=== PATIENT | male | born 1950 | race Caucasian/White ===

== ENCOUNTER → 2018-12-28 | Outpatient (CLI) | payer MEDICARE ==
[~2018-12-28] MED LIST: CLIN300 PO; HYDMOR2 PO; OMEP20ER PO; SULTRIDS PO
== END | disposition home or self-care (01) ==
LOC: LAB SHORT 12:00 → LAB 12:00 → LAB FUT 12-23 15:45
DX: C00-D49 Neoplasms (principal); E78.5 Hyperlipidemia, unspecified; R04.0 Epistaxis; R79.89 Other specified abnormal findings of blood chemistry; E03.9 Hypothyroidism, unspecified; J30.9 Allergic rhinitis, unspecified; E55.9 Vitamin D deficiency, unspecified
CPT/HCPCS: 82043

== ENCOUNTER 2019-05-09 16:30 | Emergency (ER) | payer MEDICARE ==
[~2019-05-09] VITALS: Ht 190.5 cm; Wt 106.6 kg
[2019-05-09 17:07] LABS: BASOPHILS ABSOLUTE AUTO 0.04 K/mm3 (0.00-0.23); BASOPHILS PERCENT AUTO 1 % (0-2); EOSINOPHILS ABSOLUTE AUTO 0.12 K/mm3 (0.00-0.68); EOSINOPHILS PERCENT AUTO 2 % (0-6); Hematocrit 54.8 % (37.0-53.0); Hemoglobin 17.9 g/dL (13.5-17.5); IMMATURE GRAN ABSOLUTE AUTO 0.03 K/mm3 (0.00-0.10); IMMATURE GRAN PERCENT AUTO 0 % (0-1); LYMPHOCYTES ABSOLUTE AUTO 2.14 K/mm3 (0.84-5.20); LYMPHOCYTES PERCENT AUTO 31 % (21-46); MONOCYTES ABSOLUTE AUTO 0.58 K/mm3 (0.16-1.47); MONOCYTES PERCENT AUTO 9 % (4-13); Mean Corpuscular HGB 31.6 pg (26.0-34.0); Mean Corpuscular HGB Conc 32.7 g/dL (31.5-36.5); Mean Corpuscular Volume 97 fL (80-100); Mean Platelet Volume 10.1 fL (9.1-12.4); NEUTROPHILS ABSOLUTE AUTO 3.94 K/mm3 (1.96-9.15); NEUTROPHILS PERCENT AUTO 58 % (41-73); Platelet Count 208 K/mm3 (150-400); RDW Coefficient Variation 13.2 % (11.7-14.2); RDW Standard Deviation 47.4 fL (35.1-46.3); Red Blood Cell Count 5.66 M/mm3 (4.30-5.90); White Blood Cell Count 6.85 K/mm3 (4.00-11.30)
[2019-05-09 17:26] LABS: Source, Urine Clean Catch
[2019-05-09 17:31] LABS: Troponin I <0.015 ng/mL (0.000-0.040)
[2019-05-09 17:33] LABS: Alanine Aminotransfer (ALT/SGP 33 U/L (12-78); Albumin, Blood 3.9 g/dL (3.4-5.0); Albumin/Globulin Ratio 0.8 (0.8-1.8); Alk Phos 137 U/L (50-136); Anion Gap 4 mmol/L (6-16); Aspartate Aminotrans (AST/SGOT 17 U/L (12-37); Bilirubin, Total 0.7 mg/dL (0.1-1.0); Blood Urea Nitrogen 19 mg/dL (8-24); Bun/Creatinine Ratio 16.1 (12.0-20.0); CO2, Blood 29 mmol/L (21-32); Calcium, Blood 9.3 mg/dL (8.5-10.1); Chloride, Blood 102 mmol/L (98-108); Creatinine, Blood 1.18 mg/dL (0.60-1.20); Globulin, Blood 4.7 g/dL (2.2-4.0); Glomerular Filtration Rate >60 (60-); Glucose, Blood 124 mg/dL (70-99); Potassium, Blood 4.1 mmol/L (3.5-5.5); Sodium, Blood 135 mmol/L (136-145); Total Protein, Blood 8.6 g/dL (6.4-8.2)
[2019-05-09 17:33] LABS: Bilirubin, Urine Neg (Neg); Blood, Urine Neg (Neg); Glucose Qualitative, Urine Neg (Neg); Ketones, Urine Neg (Neg); Leukocyte Esterase, Urine Neg (Neg); Nitrite, Urine Neg (Neg); Protein, Urine Neg (Neg); Urobilinogen, Urine NORM (Normal)
[2019-05-09 17:36] LABS: Free Thyroxine 0.81 ng/dL (0.70-1.60)
[2019-05-09 17:38] LABS: Thyroid Stimulating Hormone 13.5 uIU/mL (0.360-4.800)
[2019-05-09 17:42] LABS: Appearance, Urine Clear (Clear); Color, Urine Yellow (P-Yellow)
== END 2019-05-09 18:28 | disposition home or self-care (01) ==
LOC: ER 16:30
PROVIDERS: Emergency Medicine; Physician Assistant
DX: R07.9 Chest pain, unspecified (principal); E03.9 Hypothyroidism, unspecified; Z88.5 Allergy status to narcotic agent; Z79.899 Other long term (current) drug therapy
CPT/HCPCS: 36415; 71046; 80053; 81003; 83690; 84439; 84443; 84484; 85025; 93005; 93010; 99285-25

== ENCOUNTER → 2019-12-08 | Outpatient (CLI) | payer MEDICARE | END | disposition home or self-care (01) | LOC: LAB SHORT 17:14 → LAB 17:14 | DX: J02.8 Acute pharyngitis due to other specified organisms (principal) | CPT/HCPCS: 87081 ==

== ENCOUNTER 2020-05-16 16:34 | Emergency (ER) | payer MEDICARE ==
[~2020-05-16] VITALS: Ht 190.5 cm; Wt 106.6 kg
[2020-05-16 17:23] LABS: BASOPHILS ABSOLUTE AUTO 0.05 K/mm3 (0.00-0.23); BASOPHILS PERCENT AUTO 1 % (0-2); EOSINOPHILS ABSOLUTE AUTO 0.28 K/mm3 (0.00-0.68); EOSINOPHILS PERCENT AUTO 5 % (0-6); Hematocrit 49.2 % (37.0-53.0); Hemoglobin 16.2 g/dL (13.5-17.5); IMMATURE GRAN ABSOLUTE AUTO 0.02 K/mm3 (0.00-0.10); IMMATURE GRAN PERCENT AUTO 0 % (0-1); LYMPHOCYTES ABSOLUTE AUTO 1.83 K/mm3 (0.84-5.20); LYMPHOCYTES PERCENT AUTO 30 % (21-46); MONOCYTES ABSOLUTE AUTO 0.48 K/mm3 (0.16-1.47); MONOCYTES PERCENT AUTO 8 % (4-13); Mean Corpuscular HGB 31.2 pg (26.0-34.0); Mean Corpuscular HGB Conc 32.9 g/dL (31.5-36.5); Mean Corpuscular Volume 95 fL (80-100); Mean Platelet Volume 9.7 fL (9.1-12.4); NEUTROPHILS ABSOLUTE AUTO 3.48 K/mm3 (1.96-9.15); NEUTROPHILS PERCENT AUTO 57 % (41-73); Platelet Count 208 K/mm3 (150-400); RDW Coefficient Variation 13.2 % (11.7-14.2); RDW Standard Deviation 46.6 fL (35.1-46.3); Red Blood Cell Count 5.19 M/mm3 (4.30-5.90); White Blood Cell Count 6.14 K/mm3 (4.00-11.30)
[2020-05-16 17:43] LABS: Alanine Aminotransfer (ALT/SGP 36 U/L (12-78); Albumin, Blood 3.4 g/dL (3.4-5.0); Albumin/Globulin Ratio 0.8 (0.8-1.8); Alk Phos 125 U/L (50-136); Anion Gap 4 mmol/L (6-16); Aspartate Aminotrans (AST/SGOT 17 U/L (12-37); Bilirubin, Total 0.5 mg/dL (0.1-1.0); Blood Urea Nitrogen 22 mg/dL (8-24); CO2, Blood 27 mmol/L (21-32); Calcium, Blood 9.1 mg/dL (8.5-10.1); Chloride, Blood 106 mmol/L (98-108); Creatinine, Blood 1.22 mg/dL (0.60-1.20); Globulin, Blood 4.2 g/dL (2.2-4.0); Glomerular Filtration Rate >60 (60-); Glucose, Blood 137 mg/dL (70-99); Potassium, Blood 4.1 mmol/L (3.5-5.5); Sodium, Blood 137 mmol/L (136-145); Total Protein, Blood 7.6 g/dL (6.4-8.2)
[2020-05-16] MEDS ORDERED: EUTHYROX50 MCG PO (19:00)
[2020-05-16] MEDS ORDERED: DOXY100 PO (19:01)
== END 2020-05-16 19:43 | disposition home or self-care (01) ==
LOC: ER 16:34
PROVIDERS: Physician Assistant
DX: K92.1 Melena (principal); Z88.5 Allergy status to narcotic agent; Z79.899 Other long term (current) drug therapy; E03.9 Hypothyroidism, unspecified
CPT/HCPCS: 36415; 80053; 85025; 86850; 86900; 86901; 93005; 93010; 99284-25

== ENCOUNTER 2020-05-29 08:26 | Emergency (ER) | payer MEDICARE ==
[~2020-05-29] VITALS: Ht 190.5 cm; Wt 106.6 kg
[~2020-05-29 08:26] MED LIST changes: +DOXY100 PO; +EUTHYROX50 MCG PO
[2020-05-29 10:02] LABS: BASOPHILS ABSOLUTE AUTO 0.04 K/mm3 (0.00-0.23); BASOPHILS PERCENT AUTO 1 % (0-2); EOSINOPHILS ABSOLUTE AUTO 0.27 K/mm3 (0.00-0.68); EOSINOPHILS PERCENT AUTO 4 % (0-6); Hematocrit 46.5 % (37.0-53.0); Hemoglobin 15.1 g/dL (13.5-17.5); IMMATURE GRAN ABSOLUTE AUTO 0.02 K/mm3 (0.00-0.10); IMMATURE GRAN PERCENT AUTO 0 % (0-1); LYMPHOCYTES ABSOLUTE AUTO 1.46 K/mm3 (0.84-5.20); LYMPHOCYTES PERCENT AUTO 19 % (21-46); MONOCYTES ABSOLUTE AUTO 0.57 K/mm3 (0.16-1.47); MONOCYTES PERCENT AUTO 7 % (4-13); Mean Corpuscular HGB 31.1 pg (26.0-34.0); Mean Corpuscular HGB Conc 32.5 g/dL (31.5-36.5); Mean Corpuscular Volume 96 fL (80-100); Mean Platelet Volume 9.6 fL (9.1-12.4); NEUTROPHILS ABSOLUTE AUTO 5.39 K/mm3 (1.96-9.15); NEUTROPHILS PERCENT AUTO 70 % (41-73); Platelet Count 183 K/mm3 (150-400); RDW Coefficient Variation 13.2 % (11.7-14.2); Red Blood Cell Count 4.85 M/mm3 (4.30-5.90); White Blood Cell Count 7.75 K/mm3 (4.00-11.30)
[2020-05-29 10:20] LABS: Alanine Aminotransfer (ALT/SGP 32 U/L (12-78); Albumin, Blood 3.2 g/dL (3.4-5.0); Albumin/Globulin Ratio 0.8 (0.8-1.8); Alk Phos 134 U/L (50-136); Anion Gap 5 mmol/L (6-16); Aspartate Aminotrans (AST/SGOT 18 U/L (12-37); Bilirubin, Total 0.4 mg/dL (0.1-1.0); Blood Urea Nitrogen 20 mg/dL (8-24); Bun/Creatinine Ratio 16.9 (12.0-20.0); CO2, Blood 26 mmol/L (21-32); Calcium, Blood 8.6 mg/dL (8.5-10.1); Chloride, Blood 106 mmol/L (98-108); Creatinine, Blood 1.18 mg/dL (0.60-1.20); Globulin, Blood 3.8 g/dL (2.2-4.0); Glomerular Filtration Rate >60 (60-); Glucose, Blood 134 mg/dL (70-99); Potassium, Blood 4.4 mmol/L (3.5-5.5); Sodium, Blood 137 mmol/L (136-145)
[2020-05-29] MEDS ORDERED: AMOCLA875 PO (10:38)
== END 2020-05-29 10:45 | disposition home or self-care (01) ==
LOC: ER 08:26
PROVIDERS: Emergency Medicine
DX: L03.213 Periorbital cellulitis (principal); E03.9 Hypothyroidism, unspecified; Z88.5 Allergy status to narcotic agent; Z79.899 Other long term (current) drug therapy; Z79.2 Long term (current) use of antibiotics
CPT/HCPCS: 36415; 70487; 80053; 85025; 87070; 87075; 87077; 87147; 87186; 87205; 96365; 99283-25; J0690; Q9967

== ENCOUNTER 2020-07-27 19:03 | Emergency (ER) | payer MEDICARE ==
[~2020-07-27] VITALS: Ht 190.5 cm; Wt 108.9 kg
[~2020-07-27 19:03] MED LIST changes: +AMOCLA875 PO
[2020-07-27 19:51] LABS: BASOPHILS ABSOLUTE AUTO 0.06 K/mm3 (0.00-0.23); BASOPHILS PERCENT AUTO 1 % (0-2); EOSINOPHILS ABSOLUTE AUTO 0.19 K/mm3 (0.00-0.68); EOSINOPHILS PERCENT AUTO 3 % (0-6); Hematocrit 45.5 % (37.0-53.0); Hemoglobin 14.8 g/dL (13.5-17.5); IMMATURE GRAN ABSOLUTE AUTO 0.03 K/mm3 (0.00-0.10); IMMATURE GRAN PERCENT AUTO 0 % (0-1); LYMPHOCYTES ABSOLUTE AUTO 2.41 K/mm3 (0.84-5.20); LYMPHOCYTES PERCENT AUTO 34 % (21-46); MONOCYTES ABSOLUTE AUTO 0.58 K/mm3 (0.16-1.47); MONOCYTES PERCENT AUTO 8 % (4-13); Mean Corpuscular HGB 32.3 pg (26.0-34.0); Mean Corpuscular HGB Conc 32.5 g/dL (31.5-36.5); Mean Corpuscular Volume 99 fL (80-100); Mean Platelet Volume 9.7 fL (9.1-12.4); NEUTROPHILS ABSOLUTE AUTO 3.87 K/mm3 (1.96-9.15); NEUTROPHILS PERCENT AUTO 54 % (41-73); Platelet Count 160 K/mm3 (150-400); RDW Coefficient Variation 14.5 % (11.7-14.2); Red Blood Cell Count 4.58 M/mm3 (4.30-5.90); White Blood Cell Count 7.14 K/mm3 (4.00-11.30)
[2020-07-27 20:11] LABS: Alanine Aminotransfer (ALT/SGP 54 U/L (12-78); Albumin, Blood 3.6 g/dL (3.4-5.0); Albumin/Globulin Ratio 0.9 (0.8-1.8); Alk Phos 107 U/L (50-136); Anion Gap 5 mmol/L (6-16); Aspartate Aminotrans (AST/SGOT 27 U/L (12-37); Bilirubin, Total 0.5 mg/dL (0.1-1.0); Blood Urea Nitrogen 18 mg/dL (8-24); Bun/Creatinine Ratio 15.1 (12.0-20.0); CO2, Blood 30 mmol/L (21-32); Calcium, Blood 8.9 mg/dL (8.5-10.1); Chloride, Blood 107 mmol/L (98-108); Creatinine, Blood 1.19 mg/dL (0.60-1.20); Globulin, Blood 4.1 g/dL (2.2-4.0); Glomerular Filtration Rate >60 (60-); Glucose, Blood 103 mg/dL (70-99); Potassium, Blood 4.7 mmol/L (3.5-5.5); Sodium, Blood 142 mmol/L (136-145); Total Protein, Blood 7.7 g/dL (6.4-8.2)
[2020-07-27] MEDS ORDERED: Cipro500 MG PO (20:57)
== END 2020-07-27 21:07 | disposition home or self-care (01) ==
LOC: ER 19:03
PROVIDERS: Physician Assistant
DX: T81.40XA Infection following a procedure, unspecified, initial encounter (principal); L03.211 Cellulitis of face; E03.9 Hypothyroidism, unspecified; Z88.5 Allergy status to narcotic agent; Z79.899 Other long term (current) drug therapy
CPT/HCPCS: 36415; 80053; 85025; 99283

== ENCOUNTER 2021-05-27 17:53 | Emergency (ER) | payer MEDICARE ==
[~2021-05-27] VITALS: Ht 190.5 cm; Wt 108.9 kg
[~2021-05-27 17:53] MED LIST changes: +Cipro500 MG PO
[2021-05-27 18:55] LABS: BASOPHILS ABSOLUTE AUTO 0.07 K/mm3 (0.00-0.23); BASOPHILS PERCENT AUTO 1 % (0-2); EOSINOPHILS ABSOLUTE AUTO 0.31 K/mm3 (0.00-0.68); EOSINOPHILS PERCENT AUTO 4 % (0-6); Hematocrit 49.6 % (37.0-53.0); Hemoglobin 16.3 g/dL (13.5-17.5); IMMATURE GRAN ABSOLUTE AUTO 0.02 K/mm3 (0.00-0.10); IMMATURE GRAN PERCENT AUTO 0 % (0-1); LYMPHOCYTES ABSOLUTE AUTO 2.21 K/mm3 (0.84-5.20); LYMPHOCYTES PERCENT AUTO 31 % (21-46); MONOCYTES ABSOLUTE AUTO 0.52 K/mm3 (0.16-1.47); MONOCYTES PERCENT AUTO 7 % (4-13); Mean Corpuscular HGB 30.6 pg (26.0-34.0); Mean Corpuscular HGB Conc 32.9 g/dL (31.5-36.5); Mean Corpuscular Volume 93 fL (80-100); Mean Platelet Volume 10.3 fL (9.1-12.4); NEUTROPHILS ABSOLUTE AUTO 3.98 K/mm3 (1.96-9.15); NEUTROPHILS PERCENT AUTO 56 % (41-73); Platelet Count 196 K/mm3 (150-400); RDW Standard Deviation 48.9 fL (35.1-46.3); Red Blood Cell Count 5.32 M/mm3 (4.30-5.90); White Blood Cell Count 7.11 K/mm3 (4.00-11.30)
[2021-05-27 19:37] LABS: Troponin I <0.015 ng/mL (0.000-0.040)
[2021-05-27 19:51] LABS: Alanine Aminotransfer (ALT/SGP 36 U/L (12-78); Albumin, Blood 3.7 g/dL (3.4-5.0); Albumin/Globulin Ratio 0.9 (0.8-1.8); Alk Phos 107 U/L (50-136); Anion Gap 4 mmol/L (6-16); Aspartate Aminotrans (AST/SGOT 31 U/L (12-37); Bilirubin, Total 0.7 mg/dL (0.1-1.0); Blood Urea Nitrogen 22 mg/dL (8-24); Bun/Creatinine Ratio 17.2 (12.0-20.0); CO2, Blood 27 mmol/L (21-32); Chloride, Blood 106 mmol/L (98-108); Creatinine, Blood 1.28 mg/dL (0.60-1.20); Glomerular Filtration Rate 56 (60-); Glucose, Blood 133 mg/dL (70-99); Potassium, Blood 4.4 mmol/L (3.5-5.5); Sodium, Blood 137 mmol/L (136-145); Total Protein, Blood 7.7 g/dL (6.4-8.2)
== END 2021-05-27 22:45 | disposition home or self-care (01) ==
LOC: ER 17:53
PROVIDERS: Emergency Medicine
DX: R42 Dizziness and giddiness (principal); E03.9 Hypothyroidism, unspecified; I10 Essential (primary) hypertension; Z88.5 Allergy status to narcotic agent; Z79.899 Other long term (current) drug therapy; Z79.890 Hormone replacement therapy; Z85.819 Personal history of malignant neoplasm of unspecified site of lip, oral cavity, and pharynx
CPT/HCPCS: 36415; 71046; 80053; 82947; 83690; 83880; 84484; 85025; 93005; 93010; 99284-25

== ENCOUNTER 2021-06-05 15:11 | Inpatient (IN) | payer MEDICARE ==
[~2021-06-05] VITALS: Ht 190.5 cm; Wt 97.5 kg
[2021-06-05 16:08] LABS: BASOPHILS ABSOLUTE AUTO 0.06 K/mm3 (0.00-0.23); BASOPHILS PERCENT AUTO 1 % (0-2); EOSINOPHILS ABSOLUTE AUTO 0.11 K/mm3 (0.00-0.68); EOSINOPHILS PERCENT AUTO 1 % (0-6); Hematocrit 54.2 % (37.0-53.0); Hemoglobin 17.7 g/dL (13.5-17.5); IMMATURE GRAN ABSOLUTE AUTO 0.04 K/mm3 (0.00-0.10); IMMATURE GRAN PERCENT AUTO 1 % (0-1); LYMPHOCYTES ABSOLUTE AUTO 2.05 K/mm3 (0.84-5.20); LYMPHOCYTES PERCENT AUTO 23 % (21-46); MONOCYTES ABSOLUTE AUTO 0.55 K/mm3 (0.16-1.47); MONOCYTES PERCENT AUTO 6 % (4-13); Mean Corpuscular HGB 30.4 pg (26.0-34.0); Mean Corpuscular HGB Conc 32.7 g/dL (31.5-36.5); Mean Corpuscular Volume 93 fL (80-100); NEUTROPHILS ABSOLUTE AUTO 5.96 K/mm3 (1.96-9.15); NEUTROPHILS PERCENT AUTO 68 % (41-73); Platelet Count 202 K/mm3 (150-400); RDW Coefficient Variation 13.9 % (11.7-14.2); RDW Standard Deviation 47.9 fL (35.1-46.3); Red Blood Cell Count 5.82 M/mm3 (4.30-5.90); White Blood Cell Count 8.77 K/mm3 (4.00-11.30)
[2021-06-05 16:35] LABS: Alanine Aminotransfer (ALT/SGP 44 U/L (12-78); Albumin/Globulin Ratio 0.9 (0.8-1.8); Alk Phos 117 U/L (50-136); Anion Gap 5 mmol/L (6-16); Aspartate Aminotrans (AST/SGOT 21 U/L (12-37); Bilirubin, Total 1.3 mg/dL (0.1-1.0); Blood Urea Nitrogen 25 mg/dL (8-24); Bun/Creatinine Ratio 14.5 (12.0-20.0); CO2, Blood 29 mmol/L (21-32); Calcium, Blood 9.7 mg/dL (8.5-10.1); Chloride, Blood 103 mmol/L (98-108); Creatinine, Blood 1.72 mg/dL (0.60-1.20); Globulin, Blood 4.4 g/dL (2.2-4.0); Glomerular Filtration Rate 40 (60-); Glucose, Blood 127 mg/dL (70-99); Potassium, Blood 4.5 mmol/L (3.5-5.5); Sodium, Blood 137 mmol/L (136-145); Total Protein, Blood 8.4 g/dL (6.4-8.2); Troponin I <0.015 ng/mL (0.000-0.040)
[2021-06-05 19:13] LABS: SARS-Cov-2 (COVID-19) PCR, MMC NEGATIVE (NEGATIVE)
[2021-06-05 20:47] LABS: Magnesium, Blood 2.5 mg/dL (1.6-2.4)
[2021-06-05 20:50] LABS: International Normalized Ratio 1.06; Prothrombin Time Results 11.4 Sec (9.7-11.5)
[2021-06-05 21:39] LABS: Cholesterol 174 mg/dL (50-200); HDL Cholesterol 58 mg/dL (>39); LDL/HDL RATIO 1.6; Low Density Lipoprotein Chol 94 mg/dL (0-110); Triglycerides 109 mg/dL (30-160); Very Low Density Lipoprot Chol 21 mg/dL (6-32)
[2021-06-06 02:18] LABS: Source, Urine Clean Catch
[2021-06-06 02:21] LABS: Bilirubin, Urine Neg (Neg); Blood, Urine Neg (Neg); Glucose Qualitative, Urine Neg (Neg); Ketones, Urine Neg (Neg); Leukocyte Esterase, Urine Neg (Neg); Nitrite, Urine Neg (Neg); Protein, Urine 2+ (Neg); Urobilinogen, Urine NORM (Normal)
[2021-06-06 02:27] LABS: Appearance, Urine Clear (Clear); Color, Urine Yellow (P-Yellow)
[2021-06-06 02:28] LABS: Bacteria Rare /hpf; Hyaline Casts 50-100 /lpf (0-2); Mucus Light (0-Heavy); Red Blood Cells, Urine Not Seen /hpf (0-2); Squamous Epithelial Cells Rare /hpf (Few); White Blood Cells, Urine 0-2 /hpf (0-5)
[2021-06-06 02:31] LABS: U Amphetamine Screen DETECTED; U Barbituate Screen Not Detected; U Benzodiazapine Screen Not Detected; U Buprenorphine Screen Not Detected; U Cannabinoids Screen DETECTED; U Cocaine Screen Not Detected; U Methadone Screen Not Detected; U Methamphetamine Screen DETECTED; U Opiates Screen Not Detected; U Oxycodone Screen Not Detected; U Phencyclidine Screen Not Detected; U Propoxyphene Screen Not Detected
--- NOTE | 2021-06-06 03:48 | NUR ---
SHIFT SUMMARY NEW ER ADMIT ([id number]), NO ACUTE CHANGES SINCE ASSUMING CARE, NO C/O ANY KIND, A&O, ABLE TO MAKE NEEDS KNOWN, SLEEPING, NS INFUSING, CALL LIGHT IN REACH, BED ALARM ACTIVE, WILL CONT TO MONITOR UNTIL REPORT GIVEN TO DAY RN.
[2021-06-06 05:38] LABS: BASOPHILS ABSOLUTE AUTO 0.04 K/mm3 (0.00-0.23); BASOPHILS PERCENT AUTO 1 % (0-2); EOSINOPHILS ABSOLUTE AUTO 0.17 K/mm3 (0.00-0.68); EOSINOPHILS PERCENT AUTO 3 % (0-6); Hemoglobin 15.3 g/dL (13.5-17.5); IMMATURE GRAN ABSOLUTE AUTO 0.01 K/mm3 (0.00-0.10); IMMATURE GRAN PERCENT AUTO 0 % (0-1); LYMPHOCYTES ABSOLUTE AUTO 2.23 K/mm3 (0.84-5.20); LYMPHOCYTES PERCENT AUTO 36 % (21-46); MONOCYTES ABSOLUTE AUTO 0.41 K/mm3 (0.16-1.47); MONOCYTES PERCENT AUTO 7 % (4-13); Mean Corpuscular HGB 30.7 pg (26.0-34.0); Mean Corpuscular HGB Conc 32.6 g/dL (31.5-36.5); Mean Corpuscular Volume 94 fL (80-100); NEUTROPHILS ABSOLUTE AUTO 3.42 K/mm3 (1.96-9.15); NEUTROPHILS PERCENT AUTO 55 % (41-73); Platelet Count 166 K/mm3 (150-400); RDW Coefficient Variation 13.9 % (11.7-14.2); RDW Standard Deviation 48.3 fL (35.1-46.3); Red Blood Cell Count 4.98 M/mm3 (4.30-5.90); White Blood Cell Count 6.28 K/mm3 (4.00-11.30)
[2021-06-06 06:37] LABS: Bun/Creatinine Ratio 21.1 (12.0-20.0); Creatinine, Blood 1.47 mg/dL (0.60-1.20)
[2021-06-06] MEDS ORDERED: LOSA25 PO (10:55)
[2021-06-06] MEDS ORDERED: METF500 PO (10:56)
[2021-06-06] MEDS ORDERED: ATOR20 PO (11:00)
[2021-06-06] MEDS ORDERED: TRIDERM28.4 GM TOP (11:02)
[2021-06-06] MEDS ORDERED: EUTHYROX50 MCG PO (11:03)
--- NOTE | 2021-06-06 16:37 | NUR ---
PATIENT HAVING INCREASED DIFFICULTY WITH WORD FINDING AND FORMING SENTENCES. MORE CONFUSED THROUGHOUT THE DAY. DR. MCKEE NOTIFIED AND PLANS TO DO A CTA ONCE KIDNEY FUNCTION HAS IMPROVED. HEAD CHAR FILTER TANK TENDER EQUAL AND STRONG, STRONG PLANTAR/DORSAL FLEXION. UNSTEADY ON HIS FEET. NO NEW ORDERS RECEIVED.
--- NOTE | 2021-06-07 04:40 | NUR ---
SHIFT SUMMARY PATIENT ALERT AND ORIENTED X2-3. NO ACUTE ISSUES NOTED. IV PATENT AND FLUSHED. BED IN LOWEST POSITION WITH WHEELS LOCKED AND ALARM ON. CALL LIGHT WITHIN REACH. REPORT GIVEN TO ONCOMING RN.
[2021-06-07 05:05] LABS: Hematocrit 46.5 % (37.0-53.0); Hemoglobin 15.7 g/dL (13.5-17.5); Mean Corpuscular HGB Conc 33.8 g/dL (31.5-36.5); Mean Corpuscular Volume 92 fL (80-100); Mean Platelet Volume 10.2 fL (9.1-12.4); Platelet Count 153 K/mm3 (150-400); RDW Coefficient Variation 13.7 % (11.7-14.2); RDW Standard Deviation 46.4 fL (35.1-46.3); Red Blood Cell Count 5.06 M/mm3 (4.30-5.90); White Blood Cell Count 6.09 K/mm3 (4.00-11.30)
[2021-06-07 05:58] LABS: Alanine Aminotransfer (ALT/SGP 31 U/L (12-78); Albumin, Blood 3.3 g/dL (3.4-5.0); Albumin/Globulin Ratio 0.8 (0.8-1.8); Alk Phos 96 U/L (50-136); Anion Gap 8 mmol/L (6-16); Aspartate Aminotrans (AST/SGOT 17 U/L (12-37); Blood Urea Nitrogen 25 mg/dL (8-24); Bun/Creatinine Ratio 23.4 (12.0-20.0); CHOL/HDL RATIO 2.9; CO2, Blood 25 mmol/L (21-32); Calcium, Blood 8.6 mg/dL (8.5-10.1); Chloride, Blood 103 mmol/L (98-108); Cholesterol 147 mg/dL (50-200); Creatinine, Blood 1.07 mg/dL (0.60-1.20); Free Thyroxine 1.03 ng/dL (0.70-1.60); Globulin, Blood 3.9 g/dL (2.2-4.0); Glomerular Filtration Rate >60 (60-); Glucose, Blood 104 mg/dL (70-99); HDL Cholesterol 50 mg/dL (>39); LDL/HDL RATIO 1.5; Low Density Lipoprotein Chol 76 mg/dL (0-110); Potassium, Blood 3.8 mmol/L (3.5-5.5); Sodium, Blood 136 mmol/L (136-145); Total Protein, Blood 7.2 g/dL (6.4-8.2); Triglycerides 106 mg/dL (30-160); Very Low Density Lipoprot Chol 21 mg/dL (6-32)
--- NOTE | 2021-06-07 12:34 | NUR ---
RECEIVED PHONE CALL FROM TELE STATING THAT PT HAD EXPERIENCED PROLONGED QT'S LAST NIGHT AND THIS SHIFT AT .51 AND .49. THIS IT INFRASTRUCTURE PROJECT MANAGER INFORMED MD. MEDS WILL BE LOOKED AT FOR PORTENTIAL ADJUSTMENTS.
--- NOTE | 2021-06-07 18:08 | NUR ---
PT IS RESTING IN BED, EATING DINNER, AND PM MED PASS. PT IS NOT ABLE TO COMMUNICATE PAST YES AND NO QUESTIONS. NOT ABLE TO STRING A SENTENCE TOGETHER. PT UNERSTAND AND CAN CONFIRM WITH YES, NO, OK, I THINK, COMMENTS. GETS FRUSTRATED WHEN HE IS NOT ABLE TO SAY WHAT HE WANTS. SISTER AND ROOMATES SAY THIS IS NOT HIS BASELINE. NO OTHER CHANGES TO REPORT. WILL CONTINUE TO MONITOR.
--- NOTE | 2021-06-08 05:42 | NUR ---
SHIFT SUMMARY PATIENT ALERT AND OREINTED X3. EXPERIENCING EXPRESSIVE APHASIA. NO COMPLAINTS OF PAIN OR SHORTNESS OF BREATH. SLEPT WELL OVERNIGHT. NO ACUTE ISSUES NOTED. IV PATENT AND FLUSHED. BED IN LOWEST POSITION WITH WHEELS LOCKED AND ALARM ON. CALL LIGHT WITHIN REACH. REPORT GIVEN TO ONCOMING RN.
[2021-06-08 05:47] LABS: Triiodothyronine, Free 1.72 pg/mL (2.18-3.98)
[2021-06-08 05:48] LABS: Anion Gap 10 mmol/L (6-16); Blood Urea Nitrogen 22 mg/dL (8-24); Bun/Creatinine Ratio 21.4 (12.0-20.0); CO2, Blood 26 mmol/L (21-32); Calcium, Blood 8.8 mg/dL (8.5-10.1); Chloride, Blood 102 mmol/L (98-108); Creatinine, Blood 1.03 mg/dL (0.60-1.20); Glomerular Filtration Rate >60 (60-); Glucose, Blood 74 mg/dL (70-99); Potassium, Blood 4.1 mmol/L (3.5-5.5); Sodium, Blood 138 mmol/L (136-145)
--- NOTE | 2021-06-08 18:24 | NUR ---
PT IS DOING BETTER TODAY HE IS ABLE TO COMMUNICATE IN SMALL SENTEMCES. PT HAD FAMILY AT BEDSIDE THIS SHIFT. NO COMPLAINTS OF PAIN/SOB/SYNCOPE. BED ALARM ON. WILL CONT. TO MONITOR.
--- NOTE | 2021-06-09 04:53 | NUR ---
SHIFT SUMMARY A/O, ABLE TO MAKE NEEDS KNOWN. COOPERATIVE WITH CARE. CALLS AND ANSWERS QUESTIONS APPROPRIATELY. NO C/O PAIN/DISCOMFORT. 1P /c FWW TO BATHROOM. APPEARED TO REST MUCH OF THE NIGHT. NPO /p MIDNIGHT FOR PROCEDURE. BED IN LOWEST POSITION; ALARM ON. CALL LIGHT AND BELONGINGS WITHIN REACH. CONTINUE WITH CURRENT PLAN OF CARE. REPORT TO ONCOMING RN.
[2021-06-09 05:21] LABS: Hemoglobin 18.2 g/dL (13.5-17.5); Mean Corpuscular HGB 31.1 pg (26.0-34.0); Mean Corpuscular HGB Conc 33.7 g/dL (31.5-36.5); Mean Corpuscular Volume 92 fL (80-100); RDW Coefficient Variation 13.4 % (11.7-14.2); RDW Standard Deviation 45.7 fL (35.1-46.3); Red Blood Cell Count 5.86 M/mm3 (4.30-5.90)
[2021-06-09 05:28] LABS: Platelet Count 109 K/mm3 (150-400)
[2021-06-09 08:45] LABS: Alanine Aminotransfer (ALT/SGP 35 U/L (12-78); Albumin, Blood 3.6 g/dL (3.4-5.0); Albumin/Globulin Ratio 0.9 (0.8-1.8); Alk Phos 99 U/L (50-136); Anion Gap 6 mmol/L (6-16); Aspartate Aminotrans (AST/SGOT 21 U/L (12-37); Bilirubin, Total 1.5 mg/dL (0.1-1.0); Blood Urea Nitrogen 20 mg/dL (8-24); Bun/Creatinine Ratio 17.9 (12.0-20.0); CO2, Blood 27 mmol/L (21-32); Calcium, Blood 9.1 mg/dL (8.5-10.1); Chloride, Blood 104 mmol/L (98-108); Creatinine, Blood 1.12 mg/dL (0.60-1.20); Globulin, Blood 4.1 g/dL (2.2-4.0); Glomerular Filtration Rate >60 (60-); Glucose, Blood 80 mg/dL (70-99); Potassium, Blood 3.9 mmol/L (3.5-5.5); Sodium, Blood 137 mmol/L (136-145); Total Protein, Blood 7.7 g/dL (6.4-8.2)
--- NOTE | 2021-06-09 13:27 | NUR ---
PT BROUGHT FROM DIRECTOR OF SAFETY AND SECURITY TO [facility] POST PCI. RIGHT FEMORAL ACCESS USED DURING PROCEDURE. AT THIS TIME RIGHT GROIN APPEARS TO BE SOFT NON TENDER WITH NO ACTIVE BLEEDING, OOZING, OR PAIN NOTED. PT DENIES CP OR SOB. WEAVING INSTRUCTOR SINUS WITH LBBB. VSS. PT OFFERED ORAL FLUIDS, DENIES AT THIS TIME. PROVIDED HEAD PHONES TO WATCH TV AND POSITIONED FOR COMFORT. NS INFUSING AT 75 CC/HR ORDERED BY DR. CEDILLO POST PROCEDURE. RLE PULSES +1 TO DP/PT SITES, PERCLOSE CLOSURE DEVICE USED FOR HEMOSTASIS AT END OF CASE. CALL LIGHT IN REACH.
--- NOTE | 2021-06-09 16:07 | NUR ---
[place]YSON PAD CHANGED DUE TO OOZING WHILE SITTING AT 90 DEGREES. RIGHT GROIN SITE SOFT, NON TENDER. PT DENIES PAIN. NO ACTIVE BLEEDING NOTED. VSS.
--- NOTE | 2021-06-09 17:11 | NUR ---
PATIENT ARRIVAL/CARE ASSUMPTION PATIENT ARRIVED TO PCU UNIT ON GURNEY FROM [facility]. PATIENT TRANSFERED BY SLIDE SHEET. PATIENT IS ALERT AND ORIENTATED X 4. VSS. SPO2 >90% ON RA. TELE SR 70S. RIGHT GROIN ACCESS SITE HAS NO HEMATOMA, TENDER, PAIN, REDNESS. SITE HAS ABOUT 3CM AMOUNT OF BLOOD. PATIENT VITAL SIGNS BEING DONE Q 15 FOR THE FIRST HOUR AND Q 15 FOR ASSESSMENT OF ACCESS SITE. PATIENT IS RELAXING IN BED. PATIENT REPORTS NO PAIN. CALL LIGHT WITHIN REACH. WILL CONTINUE TO MONITOR AND PROVIDE CARE.
--- NOTE | 2021-06-09 18:08 | NUR ---
SHIFT SUMMARY PATIENT A/O X4. VSS. TELE SR 60-70S. SPO2 >90% ON RA. PATIENT DENIES CHEST PAIN, SHORTNESS OF BREATH, AND PAIN AT ACCESS SITE. RIGHT FEMORAL ACCESS SITE NUPTUNE CHANGED DUE TO OOZING OF BLOOD TO THE EDGES. THIS RN PUT PRESSURE ON FOR 10 MINS, AFTER 10 MINS A SMALL AMOUNT OF OOZING BLOOD. THIS RN THEN APPLIED SAND BAG TO SITE FOR PRESSURE. THERE IS NO REDNESS, HEMATOMA, OR PAIN AT THE ACCESS SITE. CALL LIGHT WITHIN REACH. WILL CONTINUE TO MONITOR AND PROVIDE CARE UNTIL HAND OFF WITH NEXT SHIFT.
--- NOTE | 2021-06-09 18:52 | NUR ---
CALL TO THIS RN NOTIFED MD CEDILLO OF PATIENT CONTINUING SMALL OZZING BLOOD AT RIGHT FEMORAL ACCESS SITE. THIS RN NOTIFED OF PUTTING PRESSURE ON SITE FOR 10MINS AND THEN ADDING THE 2LB SAND BAG. PER MD CEDILLO ORDER THIS RN POSITIONED THE PATIENT TO LAYING FLAT WITH THE SAND BAG IN PLACE. THIS RN CHANGED THE DRESSING DUE TO BLOOD OZZING OVER THE DRESSING EDGES. DRESSING IN PLACE IS TWO BY TWOS WITH A CLEAR DRESSING ON TOP. PER ORDER PATIENT TO REMAIN FLAT WITH SAND BAG IN PLACE FOR FOUR HOURS STARTED AT 1830, AND NOTIFY MD AFTER 4 HOURS OF ANY CHANGES. CALL LIGHT WITHIN REACH. WILL CONTINUE TO MONITOR AND PROVIDE CARE UNTIL HAND OFF WITH NEXT SHIFT/
[2021-06-10 04:28] LABS: Hematocrit 44.7 % (37.0-53.0); Hemoglobin 15.2 g/dL (13.5-17.5); Mean Corpuscular HGB 30.9 pg (26.0-34.0); Mean Corpuscular Volume 91 fL (80-100); Mean Platelet Volume 10.6 fL (9.1-12.4); Platelet Count 165 K/mm3 (150-400); RDW Coefficient Variation 13.5 % (11.7-14.2); RDW Standard Deviation 45.3 fL (35.1-46.3); Red Blood Cell Count 4.92 M/mm3 (4.30-5.90); White Blood Cell Count 6.31 K/mm3 (4.00-11.30)
[2021-06-10 04:56] LABS: Alanine Aminotransfer (ALT/SGP 36 U/L (12-78); Albumin, Blood 3.1 g/dL (3.4-5.0); Albumin/Globulin Ratio 0.8 (0.8-1.8); Alk Phos 85 U/L (50-136); Anion Gap 6 mmol/L (6-16); Aspartate Aminotrans (AST/SGOT 19 U/L (12-37); Bilirubin, Total 1.1 mg/dL (0.1-1.0); Blood Urea Nitrogen 19 mg/dL (8-24); Bun/Creatinine Ratio 17.9 (12.0-20.0); CO2, Blood 24 mmol/L (21-32); Calcium, Blood 8.4 mg/dL (8.5-10.1); Chloride, Blood 108 mmol/L (98-108); Creatinine, Blood 1.06 mg/dL (0.60-1.20); Globulin, Blood 3.7 g/dL (2.2-4.0); Glomerular Filtration Rate >60 (60-); Glucose, Blood 89 mg/dL (70-99); Potassium, Blood 3.8 mmol/L (3.5-5.5); Sodium, Blood 138 mmol/L (136-145); Total Protein, Blood 6.8 g/dL (6.4-8.2)
--- NOTE | 2021-06-10 06:48 | NUR ---
SHIFT SUMMARY ASSUMED CARE OF PT AT 1900. PT IS A/OX4. HEART SOUNDS REGULAR, LUNG SOUNDS ARE DIMINISHED. PT LAYED FLAT FOR THE FIRST 4 HRS OFTHE SHIFT DUE TO BLEEDING AT SITE. WEIGHTS WERE REMOVED AT 2230. PT DENIES PAIN, AND SITE IS FREE OF SWELLING AND BLEEDING. PT SAT AT 30 DEGREES UNTIL ABOUT 0200 WHEN HE WALKED TO THE BATHROOM. PT USED URINAL THE REST OF THE NIGHT. CALL LIGHT IN REACH, BED IN LOWEST POSITION, BED AALRM ON.
--- NOTE | 2021-06-10 09:30 | NUR ---
UPDATE PT ALERT AND ORIENTED. VS STABLE. BP STABLE. HR NSR. PT DENIES ANY PAIN. RIGHT GROIN STIE WNL. STATUS CHANGED TO MEDICAL WITH TELE. REPORT GIVEN TO SUGAR [place]. PT TAKEN UP BY EVA.
--- NOTE | 2021-06-10 11:30 | NUR ---
PT TRANSFERRED FROM PCU TO ROOM 342. SETTLED IN TO BED AND CALL LIGHT WITHIN REACH.
--- NOTE | 2021-06-10 19:48 | NUR ---
SHIFT SUMMARY PT HAS BEEN UP IN CHAIR TWICE BUT DOESN'T CALL FOR ASSISTANCE BACK TO BED. BED AND CHAIR ALARM ON. DRESSING TO R GROIN C/D/I. THERAPY IN TO WORK WITH PT AND ORTHOSTATIC BLOOD PRESSURES STABLE. NO CHEST PAIN NOTED.
--- NOTE | 2021-06-11 04:45 | NUR ---
SHIFT SUMMARY NO ACUTE CHANGES TO REPORT THIS SHIFT. PT HAS RESTED MOST OF THE NIGHT. A/OX3 BUT FORGETUL TO CALL LIGHT. PT JUMPS OUT OF BED IMPULSIVELY TO USE THE BATHROOM WITHOUT CALLING, BED ALARM IS NECESSARY. PT DENIES PAIN OR NEEDS T/O THE SHIFT. PLAN IS FOR POSSIBLE DC TODAY. BED IN LOWEST POSITION, CALL LIGHT WITHIN REACH.
[2021-06-11 05:12] LABS: Hemoglobin 15.3 g/dL (13.5-17.5); Mean Corpuscular HGB 30.7 pg (26.0-34.0); Mean Corpuscular HGB Conc 33.3 g/dL (31.5-36.5); Mean Corpuscular Volume 92 fL (80-100); Mean Platelet Volume 10.7 fL (9.1-12.4); Platelet Count 153 K/mm3 (150-400); RDW Coefficient Variation 13.6 % (11.7-14.2); RDW Standard Deviation 46.5 fL (35.1-46.3); Red Blood Cell Count 4.98 M/mm3 (4.30-5.90); White Blood Cell Count 6.19 K/mm3 (4.00-11.30)
[2021-06-11 05:52] LABS: Alanine Aminotransfer (ALT/SGP 31 U/L (12-78); Albumin, Blood 3.1 g/dL (3.4-5.0); Albumin/Globulin Ratio 0.9 (0.8-1.8); Alk Phos 82 U/L (50-136); Anion Gap 6 mmol/L (6-16); Aspartate Aminotrans (AST/SGOT 13 U/L (12-37); Bilirubin, Total 0.8 mg/dL (0.1-1.0); Blood Urea Nitrogen 19 mg/dL (8-24); Bun/Creatinine Ratio 16.5 (12.0-20.0); CO2, Blood 25 mmol/L (21-32); Calcium, Blood 8.6 mg/dL (8.5-10.1); Chloride, Blood 109 mmol/L (98-108); Creatinine, Blood 1.15 mg/dL (0.60-1.20); Globulin, Blood 3.6 g/dL (2.2-4.0); Glomerular Filtration Rate >60 (60-); Glucose, Blood 98 mg/dL (70-99); Potassium, Blood 4.1 mmol/L (3.5-5.5); Sodium, Blood 140 mmol/L (136-145); Total Protein, Blood 6.7 g/dL (6.4-8.2)
[2021-06-11] MEDS ORDERED: ASPI81CH PO (10:43)
[2021-06-11] MEDS ORDERED: CLOP75 PO (10:44)
[2021-06-11] MEDS ORDERED: CARV3.125 PO (10:44)
[2021-06-11] MEDS ORDERED: FLUDROCORTISON0.1 M1 PO (10:46)
[2021-06-11] MEDS ORDERED: MIDO5 PO (10:46)
--- NOTE | 2021-06-11 15:56 | NUR ---
DISCHARGE PATIENT TRANSFERED VIA WHEELCHAIR TO PRIVATE VEHICLE. DISCHARGE INSTRUCTIONS EXPLAINED TO PATIENT. FOLLOW UP APPOINTMENT WITH PCP SCHEDULED. PATIENT STATED UNDERSTANDING. PACKET SENT HOME WITH PATIENT. IV REMOVED WITHOUT DIFFICULTY. TELE REMOVED WITHOUT DIFFICULTY. BELONGINGS SENT HOME WITH PATIENT. MEDICATIONS FAXED TO PREFERRED PHARMACY.
== END 2021-06-11 15:43 | disposition home health service (06) | DRG 247 ==
LOC: ER 15:11 → MEDS 15:12 → PCU 06-09 13:48 → MEDS 06-10 09:37
PROVIDERS: Internal Medicine; Physician Assistant; Student in an Organized Health Care Education/Training Program; ADMIT Family Medicine
PROC: 027034Z Dilation of Coronary Artery, One Artery with Drug-eluting Intraluminal Device, Percutaneous Approach (ICD-10-PCS; principal; 2021-06-09)
PROC: B2111ZZ Fluoroscopy of Multiple Coronary Arteries using Low Osmolar Contrast (ICD-10-PCS; 2021-06-09)
PROC: 4A033BC Measurement of Arterial Pressure, Coronary, Percutaneous Approach (ICD-10-PCS; 2021-06-09)
DX: I25.5 Ischemic cardiomyopathy (principal); G93.49 Other encephalopathy; N17.9 Acute kidney failure, unspecified; I42.0 Dilated cardiomyopathy; I65.23 Occlusion and stenosis of bilateral carotid arteries; E03.9 Hypothyroidism, unspecified; I12.9 Hypertensive chronic kidney disease with stage 1 through stage 4 chronic kidney disease, or unspecified chronic kidney disease; E11.22 Type 2 diabetes mellitus with diabetic chronic kidney disease; F03.90 Unspecified dementia, unspecified severity, without behavioral disturbance, psychotic disturbance, mood disturbance, and anxiety; Z20.822 Contact with and (suspected) exposure to COVID-19; N18.30 Chronic kidney disease, stage 3 unspecified; Z60.2 Problems related to living alone; I95.1 Orthostatic hypotension; I25.10 Atherosclerotic heart disease of native coronary artery without angina pectoris; E86.9 Volume depletion, unspecified; D75.1 Secondary polycythemia; F15.10 Other stimulant abuse, uncomplicated; Z85.818 Personal history of malignant neoplasm of other sites of lip, oral cavity, and pharynx; Z92.21 Personal history of antineoplastic chemotherapy; Z88.5 Allergy status to narcotic agent; Z92.3 Personal history of irradiation; Z86.010 Personal history of colon polyps; Z98.890 Other specified postprocedural states; Z79.899 Other long term (current) drug therapy; Z79.84 Long term (current) use of oral hypoglycemic drugs; Z71.51 Drug abuse counseling and surveillance of drug abuser
CPT/HCPCS: 36415; 70450; 70496; 70498; 71046; 76937; 80048; 80053; 80061; 81001; 82533; 82607; 82746; 83605; 83735; 83880; 84439; 84443; 84481; 84484; 85025; 85027; 85347; 85610; 85730; 92978; 93005; 93010; 93454; 93571; 93572; 93880; 96372; 97116; 97129; 97161; 97166; 97530; 97530-CQ; 97535; 99152; 99153; 99285-25; A9270; C1725; C1753; C1760; C1769; C1874; C1887; C1894; C8929; C9600; G0378; J1644; J1650; J2250; J2370; J3010; J7030; J7050; Q9957; Q9967; U0004

== ENCOUNTER → 2021-07-08 | Outpatient (CLI) | payer MEDICARE ==
[~2021-07-08] MED LIST changes: +ASPI81CH PO; +ATOR20 PO; +CARV3.125 PO; +CLOP75 PO; +FLUDROCORTISON0.1 M1 PO; +LOSA25 PO; +METF500 PO; +MIDO5 PO; +TRIDERM28.4 GM TOP
[2021-07-08 20:15] LABS: Microalbumin, Urine Quant. 10.8 mg/L (0.000-20.000); Protein, Urine Quantitative 10.4 mg/dL (0.0-11.9)
== END | disposition home or self-care (01) ==
LOC: LAB SHORT 16:46 → LAB 16:46 → LAB FUT 07-04 14:25 → EDSTATUS 07-04 14:25
PROVIDERS: Internal Medicine Nephrology
DX: N18.30 Chronic kidney disease, stage 3 unspecified (principal); D63.1 Anemia in chronic kidney disease; N25.81 Secondary hyperparathyroidism of renal origin; E55.9 Vitamin D deficiency, unspecified; E78.00 Pure hypercholesterolemia, unspecified; N40.1 Benign prostatic hyperplasia with lower urinary tract symptoms; D51.8 Other vitamin B12 deficiency anemias; D52.8 Other folate deficiency anemias; D50.9 Iron deficiency anemia, unspecified; R76.9 Abnormal immunological finding in serum, unspecified; R94.6 Abnormal results of thyroid function studies; R94.5 Abnormal results of liver function studies
CPT/HCPCS: 81050; 82043; 82570; 84156